=== PATIENT | male | born 1975 | race Two or more races ===

== ENCOUNTER 2018-02-25 08:57 | Emergency (ER) | payer OTHER ==
[~2018-02-25] VITALS: Ht 182.9 cm; Wt 99.8 kg
[2018-02-25] MEDS ORDERED: Norco 5mg/325mg tab ORAL ONE ×2 (09:00→09:15)
--- NOTE | 2018-02-25 09:02 | Emergency Room Report ---
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 Pain radiates from buttock down right leg. Worse with any movement. Took meds for HTN, HLD today but no pain meds. No previous back injury or chronic lower back pain. Denies weakness to lower extremity, urinary incontinence. Allergies: Coded Allergies: PENICILLINS (Verified Allergy, Unknown, 02/25/18) Patient History Past Medical History: HTN, other - HLD Past Surgical History: none Pertinent Family History: none Social History: Denies: smoking, alcohol use, drug use Immunizations: UTD Reviewed Nursing Documentation: PMH: Agreed; PSxH: Agreed Nursing Documentation-PMH Past Medical History: No History, Except For Hx Cardiac Problems: Yes - high cholesterol Hx Hypertension: Yes Review of Systems All Other Systems: negative except mentioned in HPI Physical Exam Vital Signs Date Time Temp Pulse Resp B/P (MAP) Pulse Ox O2 Delivery O2 Flow Rate FiO2 02/25/18 08:51 98.0 62 16 148/93 99 Room Air 98.1 Sp02 EP Interpretation: reviewed, normal General Appearance: normal inspection, well appearing, no apparent distress, alert, GCS 15, non-toxic, other - Writhing on left side in pain Head: normocephalic, atraumatic Eyes: bilateral eye PERRL, bilateral eye EOMI ENT: normal ENT inspection, hearing grossly normal, normal pharynx, no angioedema, normal voice, TMs + canals normal, uvula midline, moist mucus membranes Neck: normal inspection, full range of motion, supple, thyroid normal, no meningismus, no bony tend Respiratory: normal inspection, lungs clear, normal breath sounds, no rhonchi, no respiratory distress, no retraction, no accessory muscle use, no wheezing, speaking full sentences Cardiovascular #1: regular rate, rhythm, no edema, no JVD, normal capillary refill Gastrointestinal: normal inspection, normal bowel sounds, non tender, soft, no mass, no peritonitis, non-distended, no guarding, no hernia, no pulsatile mass Genitourinary: no CVA tenderness Musculoskeletal: normal inspection, back normal, normal range of motion, no calf tenderness, pelvis stable, Raghu's Sign negative Neurologic: normal inspection, alert, oriented x3, responsive, 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, motor strength/tone normal, cerebellar normal, normal gait, speech normal Psychiatric: normal inspection, judgement/insight normal, mood/affect normal, no suicidal/homicidal ideation, no delusions Skin: normal inspection, normal color, no rash Lymphatic: normal inspection, no adenopathy Medical Decision Making Diagnostic Impression: Primary Impression: Low back pain Qualified Codes: M54.41 - Lumbago with sciatica, right side ER Course VSS, afebrile Low back strain from heavy lifting No direct trauma or falls Low suspicion for cord compression given known acute exacerbant of pain/injury, no focal neuro deficits Improved with analgesia DC home ER course: Patient has remained stable during ED stay. Disposition: Patient is to be discharged to home. Prescriptions given are robaxin Patient is instructed to follow up with their primary care doctor within 5 days. Strict return precautions discussed with patient such as fever, chills, worsening/severe pain, nausea, vomiting, which may indicate severe illness. Patient verbalizes understanding and agrees with plan. Please note that this Emergency Department Report was dictated using [employer] technology software, occasionally this can lead to erroneous entry secondary to interpretation by the dictation equipment Last Vital Signs Date Time Temp Pulse Resp B/P (MAP) Pulse Ox O2 Delivery O2 Flow Rate FiO2 02/25/18 08:51 98.0 62 16 148/93 99 Room Air 98.1 Status: improved Disposition: HOME, SELF-CARE Scripts Ibuprofen* (MOTRIN*) 800 Mg Tablet 800 MG ORAL THREE TIMES A DAY for back pain for 7 Days, #30 TAB 0 Refills Prov: NALINI VENEGAS M.D. 02/25/18 Methocarbamol* (ROBAXIN-750*) 750 Mg Tablet 750 MG PO TID for back pain for 7 Days, #30 TAB 0 Refills Prov: NALINI VENEGAS M.D. 02/25/18 NALINI VENEGAS M.D. Feb 25, 2018 09:02
[2018-02-25] MEDS ORDERED: IBUPROFEN800 MG ORAL (10:06)
[2018-02-25] MEDS ORDERED: ROBAXIN-750750 MG PO (10:06)
[2018-02-25 11:29] VITALS: BP 122/74
== END 2018-02-25 11:29 | disposition home or self-care (01) ==
LOC: EDBD 08:57 → EMR 10:10
DX: M54.41 Lumbago with sciatica, right side (principal); I10 Essential (primary) hypertension; E78.5 Hyperlipidemia, unspecified; Z88.0 Allergy status to penicillin
CPT/HCPCS: 99284